=== PATIENT | female | born 1945 ===

== ENCOUNTER → 2018-11-15 20:37 | Outpatient (REF) | payer MEDICARE, SELFPAY ==
[2018-11-15 21:42] LABS: Add Manual Diff / Slide Review NO; Basophils Absolute Auto 100 /uL (0-100); Eosinophils Absolute Auto 200 /uL (0-450); Eosinophils Percent Auto 3.1 % (2-4); Hematocrit 37.2 % (36-46); Hemoglobin 12.3 g/dL (12.0-16.0); Lymphocytes Absolute Auto 1900 /uL (1100-4500); Lymphocytes Percent Auto 31.6 % (25-40); Mean Corpuscular HGB Conc 33.2 % (30-36); Mean Corpuscular Hemoglobin 30.6 PG (26-34); Mean Corpuscular Volume 92.3 fL (80-100); Monocytes Absolute Auto 400 /uL (0-900); Monocytes Percent Auto 7.3 % (3-14); Neutrophils Absolute Auto 3500 /uL (1500-7000); Platelet Count 260 X10^3/uL (150-400); Red Blood Cell Count 4.03 X10^6/uL (4.0-5.2); Red Cell Distribution Width 12.9 % (11.6-14.8); White Blood Cell Count 6.1 X10^3/uL (4.5-11.0)
[2018-11-15 21:58] LABS: HEMOLYSIS < 15 (0-50)
[2018-11-15 22:06] LABS: Alanine Aminotransferase 39 IU/L (9-52); Albumin 4.5 g/dL (3.5-5.0); Albumin Globulin Ratio 1.7 (1.0-2.8); Alkaline Phosphatase 67 U/L (38-126); Aspartate Aminotransferase 32 IU/L (14-36); Bilirubin Total 0.2 mg/dL (0.2-1.3); Blood Urea Nitrogen 20 mg/dL (7-17); Calcium 9.8 mg/dL (8.4-10.2); Carbon Dioxide 30 mmol/L (22-32); Chloride 98 mmol/L (98-107); Creatine Kinase 104 U/L (30-135); Estimated Glomerular Filt Rate > 60.0 mL/min (>60); Globulin 2.6 g/dL (1.7-4.1); Glucose 91 mg/dL (80-110); Magnesium 2.3 mg/dL (1.6-2.3); Potassium 4.8 mmol/L (3.4-5.1); Sodium 138 mmol/L (137-145); Total Protein 7.1 g/dL (6.3-8.2)
[2018-11-15 22:20] LABS: Vitamin D 25 Hydroxy (D3) 33.4 ng/mL (30.0-100.0)
[2018-11-16 00:03] LABS: Iron 75 ug/dL (37-170)
[2018-11-16 01:10] LABS: Folate 6.5 ng/mL (2.76-20.0)
[2018-11-18 14:09] LABS: Ceruloplasmin 30 mg/dL (18-53)
[2018-11-20 08:34] LABS: C.albicans IgG 1.4; C.albicans IgM 0.6 (<1.0)
[2018-11-20 14:15] LABS: EBV Virus IgM Ab < 36.00 U/mL (< 36.00); EVB Early IgG < 9.00 U/mL (< 9.00)
== END ==
LOC: LAB 20:37
PROVIDERS: Visit Provider Naturopath
DX: M81.0 Age-related osteoporosis without current pathological fracture (principal); R53.83 Other fatigue; Z82.41 Family history of sudden cardiac death; R10.9 Unspecified abdominal pain
CPT/HCPCS: 36415; 80053; 82306; 82390; 82550; 82746; 83013; 83088; 83540; 83735; 85025; 86628; 86663; 86664; 86665